=== PATIENT | female | born 1935 | race Caucasian/White ===

== ENCOUNTER 2021-07-07 00:54 | Inpatient (IN) | payer OTHER, BC ==
[~2021-07-07] VITALS: Ht 154.9 cm; Wt 50.0 kg
[2021-07-07] VITALS (7 sets, daily range): BP systolic 132–152; BP diastolic 63–97
[2021-07-07] MEDS ORDERED: SERT25TA PO (01:45)
[2021-07-07] MEDS ORDERED: LEVO50CA3 PO (01:45)
[2021-07-07] MEDS ORDERED: BISA10SU55 RC (01:45)
[2021-07-07] MEDS ORDERED: ASPI-630 PO (01:45)
[2021-07-07] MEDS ORDERED: ACET650S11 RC (01:45)
[2021-07-07] MEDS ORDERED: MEMA10TA PO (01:45)
[2021-07-07] MEDS ORDERED: ACET325T21 PO (01:45)
[2021-07-07] MEDS ORDERED: ATOR20TA58 PO (01:45)
--- NOTE | 2021-07-07 06:23 | NUR ---
Pt arrived to the floor at 0005 via EMS. Pt very confused and unable to answer questions. No s/s of pain or distress. Dr. Modi paged for orders at approximately 0145, 0200, and 0600, no call back yet.
[2021-07-07] MEDS ORDERED: ONDANSETRON PF 4 MG/2 ML VIAL. IVP PRN (10:45)
[2021-07-07] MEDS ORDERED: fentaNYL PF VIAL 100 MCG/2 ML VIAL IVP PRN (10:45)
[2021-07-07] MEDS ORDERED: POTASSIUM CL 20MEQ D5-0.2%NACL 1,000 ML IV SCH (11:00)
[2021-07-07] MEDS: PIPERACILLIN/TAZOBACTAM 2.25 GM in IV NORMAL SALINE 50ML 50 ML IV SCH ×3 (11:12→23:03)
[2021-07-07 11:22] LABS: CALCIUM 7.5 mg/dL (8.5-10.1); CREATININE 0.7 mg/dL (0.6-1.0); GFR 79.9; POTASSIUM 3.2 mmol/L (3.5-5.1)
[2021-07-07 11:24] LABS: BASO % 0 % (0-3); EOS % 0 % (0-3); HEMATOCRIT 37.6 % (36.0-47.0); HEMOGLOBIN 12.2 g/dL (12.0-15.5); LYMPH # 0.9 x10^3/uL (1.0-4.8); LYMPH % 7 % (24-48); MEAN CORPUSCULAR HEMOGLOBIN 31 pg (25-35); MEAN CORPUSCULAR HGB CONC 32 g/dL (31-37); MEAN CORPUSCULAR VOLUME 95 fL (79-100); MONO # 0.8 x10^3/uL (0.0-1.1); MONO % 6 % (0-9); NEUT # 12.3 x10^3/uL (1.8-7.7); NEUT % 88 % (31-73); PLATELET COUNT 313 x10^3/uL (140-400); RED BLOOD COUNT 3.97 x10^6/uL (3.50-5.40)
--- NOTE | 2021-07-07 11:25 | NUR ---
Lab called to notified about patient troponin critical level of 81 at 11:20am. Dr. Modi was paged and notified at 11:24am. No new ordered received at this time.
[2021-07-07 11:26] LABS: ALBUMIN 2.4 g/dL (3.4-5.0); ALBUMIN/GLOBULIN RATIO 0.6 (1.0-1.7); TOTAL BILIRUBIN 0.7 mg/dL (0.2-1.0); TOTAL PROTEIN 6.1 g/dL (6.4-8.2)
[2021-07-07] MEDS ORDERED: PIPERACILLIN/TAZOBACTAM 3.375 GM in IV NORMAL SALINE 50ML 50 ML IV SCH (12:00)
--- NOTE | 2021-07-07 12:05 | HP ---
DATE OF SERVICE: 07/07/2021 ADMIT DATE: 07/07/2021 HISTORY OF PRESENT ILLNESS: The patient is an 85-year-old female patient, a resident at [facility] who presented to the Emergency Room of [facility] via EMS for nausea and vomiting. Her symptoms started about 5 days ago and apparently the patient has been vomiting usually late in the day according to the nursing staff. There is no sick contact, trauma, or other exposures. According to the nursing staff, she also has been constipated, has not had any bowel movement, but there are no chills, rigors or fever. We did actually lab work and KUB that showed mild ileus and therefore, the patient was transferred to [facility] for further evaluation. When she arrived there, she was hemodynamically stable; however, she obviously is demented and does not give any useful information. She was extensively investigated. Had had lab work and imaging studies. Her lab work showed that she has leukocytosis with a white cell count 15,400, normal hemoglobin, hematocrit and platelets. Her chemistry showed that she has mild hypernatremia and her troponin I high sensitivity was slightly elevated at 93. She had also impaired kidney function with an estimated GFR of 47 mL per minute. Her urinalysis apart from mild proteinuria was unremarkable and unrevealing. Her SARS-CoV-2 antigen rapid testing was negative. She has had a CT scan of the abdomen and pelvis without contrast, which basically showed that the patient has dilated small bowel loops with distal decompression, which can be seen with bowel obstruction, suspected transition point at pelvis. She has patchy opacities at the lung bases, which could be from atelectasis, infiltrate or aspiration. Followup could be obtained to ensure that this appropriately resolved to exclude any persistent mass. She has severe atherosclerotic disease, calcification of uterus, could be from fibroids, distention of the rectosigmoid region with stool. She has lobulated appearance of the kidneys with fat-containing lesions of the right kidney again seen as well as suspected cystic lesion in the left kidney. She had also had an EKG, which showed that she was in sinus rhythm and given the suspected bowel obstruction, perhaps aspiration pneumonia and elevated troponin, the patient was transferred to [facility] to consult the surgical team, hydraulic spinner and to start her on IV antibiotic for her pneumonia. PAST MEDICAL HISTORY: Significant for hypertension, hyperlipidemia, vitamin D deficiency, hypothyroidism. She also has a history of TIA, cerebrovascular accident without any residual deficit, chronic venous hypertension and dementia. She is also known to have osteoporosis and osteoarthritis. PAST SURGICAL HISTORY: Significant for left hip hemiarthroplasty done on 09/25/2019. ALLERGIES: She has no known drug allergies. MEDICATIONS: She is currently on the following medications: She is on atorvastatin calcium 20 mg at bedtime, lisinopril 5 mg once a day, aspirin 81 mg once a day, Tylenol 650 mg every 4 hours, olanzapine 2.5 mg at bedtime, Namenda 10 mg twice a day, Colace 100 mg twice a day, lactobacillus rhamnosus 1 capsule twice a day, and levothyroxine sodium 50 mcg once a day. FAMILY HISTORY: Noncontributory. SOCIAL HISTORY: She is a resident at the longterm care side of [facility] since 12/25/2019. She does not smoke, drink alcohol or use any drugs. She is bed and wheelchair-bound. She apparently is a DNR. PHYSICAL EXAMINATION: GENERAL: On arrival to the Emergency Room, she was somewhat lethargic, but arousable. There was no pallor, jaundice, cyanosis or thyromegaly. No jugular venous distention. No limb edema. VITAL SIGNS: Her heart rate was 72, blood pressure was 146/66, her temperature was 98.2, respiratory rate was 18, and oxygen saturation was 93% on room air. HEAD, EYES, EARS, NOSE, AND THROAT: Normocephalic, atraumatic. NECK: Supple. HEART: Showed normal first and second heart sounds. No gallop, rub or murmur. CHEST: Shows central trachea, equal bilateral chest expansion, air entry, vesicular breath sounds. No crepitation or rhonchi. ABDOMEN: Distended with tenderness mostly in the right lower quadrant. There is no guarding or rigidity. No organomegaly. All hernial orifice intact. Bowel sounds normal. NEUROLOGIC: She is demented without any obvious lateralizing sign. LABORATORY DATA: On arrival to the Emergency Room of [facility] showed a white cell count 15,400; hemoglobin 14.6; hematocrit 45.7; MCV 98; and platelet count of 369,000; with a manual differential showed 90% polymorphs, 6% lymphocytes and 4% monocytes. Her serum sodium was 146, potassium 3.6, chloride 109, bicarbonate 28, anion gap of 9, BUN 33, creatinine 1.1. Estimated GFR was 47 mL per minute. Her glucose 101, lactic acid was 1.7, calcium was 9.3. Total bilirubin, AST, ALT, alkaline phosphatase are normal. Troponin I high sensitivity was slightly elevated at 93. Total protein 7.5, albumin was 3.4. In summary, this is an 85-year-old female patient, a resident at [facility] who has been complaining of recurrent bouts of nausea and vomiting. She had a KUB and some lab work done there, which showed that she has possible ileus. She was sent to [facility] where a CT scan of the abdomen and pelvis showed that she has dilated small bowel in the transition zone in the pelvic area suggestive of small-bowel obstruction. She also found to have probably aspiration pneumonia and her troponin was slightly elevated at 93. She has multiple other medical problems including: A. Hypertension. B. Hyperlipidemia. C. Vitamin D deficiency. D. Hypothyroidism. E. Chronic venous hypertension. F. Dementia. My plan is obviously to keep her n.p.o., start her on IV fluid in the form of D5 quarter normal saline with 20 mEq of potassium chloride. I did start her on IV Zosyn 3.375 grams IV every 6 hours for aspiration pneumonia. I will repeat all her lab work and consulted the surgical team, the Cardiology for her elevated troponin. I also ordered another 12-lead EKG and troponin. I also ordered fentanyl for pain and Zofran for nausea and vomiting. HOLLY/MATTHEW/CINTHYA DR: Oracio TID: [id number]
[2021-07-07] MEDS: POTASSIUM CL 20MEQ IN D5W 1,000 ML IV SCH ×2 (12:45→23:05)
[2021-07-07] MEDS ORDERED: BISACODYL 10 MG SUPP.RECT. PR ONE (16:30)
[2021-07-07] MEDS ORDERED: ACETAMINOPHEN 650 MG SUPP.RECT. PR PRN (16:30)
[2021-07-08 03:00] VITALS: BP 162/92
[2021-07-08] MEDS: PIPERACILLIN/TAZOBACTAM 2.25 GM in IV NORMAL SALINE 50ML 50 ML IV SCH ×3 (05:23→16:35)
[2021-07-08 05:50] LABS: BASO % 0 % (0-3); EOS # 0.1 x10^3/uL (0.0-0.7); EOS % 1 % (0-3); HEMATOCRIT 39.7 % (36.0-47.0); HEMOGLOBIN 12.6 g/dL (12.0-15.5); LYMPH # 1.6 x10^3/uL (1.0-4.8); LYMPH % 12 % (24-48); MEAN CORPUSCULAR HEMOGLOBIN 31 pg (25-35); MEAN CORPUSCULAR HGB CONC 32 g/dL (31-37); MEAN CORPUSCULAR VOLUME 97 fL (79-100); MONO # 0.8 x10^3/uL (0.0-1.1); MONO % 6 % (0-9); NEUT # 10.5 x10^3/uL (1.8-7.7); NEUT % 80 % (31-73); PLATELET COUNT 289 x10^3/uL (140-400); RED BLOOD COUNT 4.11 x10^6/uL (3.50-5.40); RED CELL DISTRIBUTION WIDTH 15.4 % (11.5-14.5); WHITE BLOOD COUNT 13.1 x10^3/uL (4.0-11.0)
[2021-07-08 05:52] LABS: ALBUMIN 2.3 g/dL (3.4-5.0); ALBUMIN/GLOBULIN RATIO 0.6 (1.0-1.7); CALCIUM 8.2 mg/dL (8.5-10.1); CREATININE 0.9 mg/dL (0.6-1.0); GFR 59.8; POTASSIUM 3.4 mmol/L (3.5-5.1); TOTAL BILIRUBIN 0.6 mg/dL (0.2-1.0); TOTAL PROTEIN 6.4 g/dL (6.4-8.2)
[2021-07-08 07:00] VITALS: BP 110/52
[2021-07-08] MEDS: POTASSIUM CL 20MEQ IN D5W 1,000 ML IV SCH ×2 (08:17→20:45)
--- NOTE | 2021-07-08 09:03 | PDOC2 ---
JACK VÁSQUEZ DETENTION DEPUTY 07/08/21 0903: CONSULT Date of Consult Date of Consult DATE: 07/08/21 TIME: 08:57 Reason for Consult Reason for Consult: sbo Referring Physician Referring Physician: Dr Modi Identification/Chief Complaint Chief Complaint n/v Source Source: Caregiver, Chart review History of Present Illness Reason for Visit: Patient unable to provide any history due to her significant dementia. Admitted from [facility] for possible SBO. She resides at a [facility] bug [facility] care facility. Was noted to have n/v, no stool in a week. There are reports she has not been eating well for longer. Ct at [facility] showed possible pneumonia, possible SBO with constipation. nursing reports 2 suppositories, no stools at this time Past Medical History Cardiovascular: AFIB, HTN, Hyperlipidemia CENTRAL NERVOUS SYSTEM: Dementia, TIA Psych: Bipolar, Depression Endocrine: Hypothyroidism Past Surgical History Past Surgical History: Other (unknown ) Family History Family History: Family History Unknown Social History Social History unknown Current Medications Current Medications Current Medications Potassium Chloride/Dextrose/ Sod Cl 1,000 ml @ 100 mls/hr Q10H IV Last administered on 07/07/21at 11:08; Start 07/07/21 at 11:00; Stop 07/07/21 at 12:40; Status DC Fentanyl Citrate (Fentanyl 2ml Vial) 25 mcg Q3H PRN IVP PAIN; Start 07/07/21 at 10:45 Ondansetron HCl (Zofran) 4 mg Q4H PRN IVP NAUSEA/VOMITING; Start 07/07/21 at 10:45 Piperacillin Sod/ Tazobactam Sod 3.375 gm/Sodium Chloride 50 ml @ 100 mls/hr Q6HRS IV ; Start 07/07/21 at 12:00; Status UNV Piperacillin Sod/ Tazobactam Sod 2.25 gm/Sodium Chloride 50 ml @ 100 mls/hr Q6HRS IV Last administered on 07/08/21at 05:23; Start 07/07/21 at 12:00 Potassium Chloride/Dextrose 1,000 ml @ 100 mls/hr Q10H IV Last administered on 07/08/21at 08:17; Start 07/07/21 at 12:45 Acetaminophen (Tylenol Supp) [address] Q[address] MILD PAIN / TEMP > 100.3'F Last administered on 07/07/21at 17:19; Start 07/07/21 at 16:30 Bisacodyl (Dulcolax Supp) [address] Last administered on 07/07/21at 17:20; Start 07/07/21 at 16:30; Stop 07/07/21 at 16:33; Status DC Active Scripts Active Reported Zoloft (Sertraline Hcl) 25 Mg Tablet 25 Mg PO DAILY Namenda (Memantine Hcl) 10 Mg Tablet 10 Mg PO BID Levothyroxine (Levothyroxine Sodium) 50 Mcg Capsule 50 Mcg PO DAILY Dulcolax (Bisacodyl) 10 Mg Supp.rect 10 Mg RC PRN DAILY PRN Atorvastatin Calcium 20 Mg Tablet 20 Mg PO HS Aspirin 81 Mg Tab.chew 1 Tab PO DAILY Acetaminophen 325 Mg Tablet 650 Mg PO PRN Q4HRS PRN Acetaminophen Supp (Acetaminophen) 650 Mg Supp.rect 650 Mg RC PRN Q6HRS PRN Allergies Allergies: Coded Allergies: No Known Drug Allergies (Unverified , 12/29/14) ROS Review of System unable to obtain due to dementia Physical Exam General: Other (dementia ) HEENT: Other (very poor dental hygiene) Lungs: Other (diminished ) Heart: Regular rate, Normal S1, Normal S2 Abdomen: Other (distended, soft, appears nontender ) Extremities: No clubbing, No cyanosis MUSCULOSKELETAL: No deformity, No swelling Vitals VITALS Vital Signs Date Time Temp Pulse Resp B/P (MAP) Pulse Ox O2 Delivery O2 Flow Rate FiO2 07/08/21 07:00 98.0 61 18 110/52 (71) 97 Room Air 98.0 Labs Labs Laboratory Tests Test 07/07/21 10:45 07/07/21 16:00 07/08/21 05:00 White Blood Count 14.0 x10^3/uL (4.0-11.0) 13.1 x10^3/uL (4.0-11.0) Red Blood Count 3.97 x10^6/uL (3.50-5.40) 4.11 x10^6/uL (3.50-5.40) Hemoglobin 12.2 g/dL (12.0-15.5) 12.6 g/dL (12.0-15.5) Hematocrit 37.6 % (36.0-47.0) 39.7 % (36.0-47.0) Mean Corpuscular Volume 95 fL (79-100) 97 fL (79-100) Mean Corpuscular Hemoglobin 31 pg (25-35) 31 pg (25-35) Mean Corpuscular Hemoglobin Concent 32 g/dL (31-37) 32 g/dL (31-37) Red Cell Distribution Width 15.0 % (11.5-14.5) 15.4 % (11.5-14.5) Platelet Count 313 x10^3/uL (140-400) 289 x10^3/uL (140-400) Neutrophils (%) (Auto) 88 % (31-73) 80 % (31-73) Lymphocytes (%) (Auto) 7 % (24-48) 12 % (24-48) Monocytes (%) (Auto) 6 % (0-9) 6 % (0-9) Eosinophils (%) (Auto) 0 % (0-3) 1 % (0-3) Basophils (%) (Auto) 0 % (0-3) 0 % (0-3) Neutrophils # (Auto) 12.3 x10^3/uL (1.8-7.7) 10.5 x10^3/uL (1.8-7.7) Lymphocytes # (Auto) 0.9 x10^3/uL (1.0-4.8) 1.6 x10^3/uL (1.0-4.8) Monocytes # (Auto) 0.8 x10^3/uL (0.0-1.1) 0.8 x10^3/uL (0.0-1.1) Eosinophils # (Auto) 0.0 x10^3/uL (0.0-0.7) 0.1 x10^3/uL (0.0-0.7) Basophils # (Auto) 0.0 x10^3/uL (0.0-0.2) 0.0 x10^3/uL (0.0-0.2) Sodium Level 152 mmol/L (136-145) 148 mmol/L (136-145) Potassium Level 3.2 mmol/L (3.5-5.1) 3.4 mmol/L (3.5-5.1) Chloride Level 115 mmol/L (98-107) 112 mmol/L (98-107) Carbon Dioxide Level 23 mmol/L (21-32) 28 mmol/L (21-32) Anion Gap 14 (6-14) 8 (6-14) Blood Urea Nitrogen 26 mg/dL (7-20) 19 mg/dL (7-20) Creatinine 0.7 mg/dL (0.6-1.0) 0.9 mg/dL (0.6-1.0) Estimated GFR (Cockcroft-Gault) 79.9 59.8 BUN/Creatinine Ratio 37 (6-20) 21 (6-20) Glucose Level 77 mg/dL (70-99) 153 mg/dL (70-99) Lactic Acid Level 0.8 mmol/L (0.4-2.0) Calcium Level 7.5 mg/dL (8.5-10.1) 8.2 mg/dL (8.5-10.1) Total Bilirubin 0.7 mg/dL (0.2-1.0) 0.6 mg/dL (0.2-1.0) Aspartate Amino Transf (AST/SGOT) 15 U/L (15-37) 14 U/L (15-37) Alanine Aminotransferase (ALT/SGPT) 12 U/L (14-59) 12 U/L (14-59) Alkaline Phosphatase 59 U/L (46-116) 63 U/L (46-116) Lactate Dehydrogenase 196 U/L (81-234) Troponin I High Sensitivity 81 ng/L (4-50) 71 ng/L (4-50) Total Protein 6.1 g/dL (6.4-8.2) 6.4 g/dL (6.4-8.2) Albumin 2.4 g/dL (3.4-5.0) 2.3 g/dL (3.4-5.0) Albumin/Globulin Ratio 0.6 (1.0-1.7) 0.6 (1.0-1.7) Laboratory Tests Test 07/07/21 10:45 07/07/21 16:00 07/08/21 05:00 White Blood Count 14.0 x10^3/uL (4.0-11.0) 13.1 x10^3/uL (4.0-11.0) Red Blood Count 3.97 x10^6/uL (3.50-5.40) 4.11 x10^6/uL (3.50-5.40) Hemoglobin 12.2 g/dL (12.0-15.5) 12.6 g/dL (12.0-15.5) Hematocrit 37.6 % (36.0-47.0) 39.7 % (36.0-47.0) Mean Corpuscular Volume 95 fL (79-100) 97 fL (79-100) Mean Corpuscular Hemoglobin 31 pg (25-35) 31 pg (25-35) Mean Corpuscular Hemoglobin Concent 32 g/dL (31-37) 32 g/dL (31-37) Red Cell Distribution Width 15.0 % (11.5-14.5) 15.4 % (11.5-14.5) Platelet Count 313 x10^3/uL (140-400) 289 x10^3/uL (140-400) Neutrophils (%) (Auto) 88 % (31-73) 80 % (31-73) Lymphocytes (%) (Auto) 7 % (24-48) 12 % (24-48) Monocytes (%) (Auto) 6 % (0-9) 6 % (0-9) Eosinophils (%) (Auto) 0 % (0-3) 1 % (0-3) Basophils (%) (Auto) 0 % (0-3) 0 % (0-3) Neutrophils # (Auto) 12.3 x10^3/uL (1.8-7.7) 10.5 x10^3/uL (1.8-7.7) Lymphocytes # (Auto) 0.9 x10^3/uL (1.0-4.8) 1.6 x10^3/uL (1.0-4.8) Monocytes # (Auto) 0.8 x10^3/uL (0.0-1.1) 0.8 x10^3/uL (0.0-1.1) Eosinophils # (Auto) 0.0 x10^3/uL (0.0-0.7) 0.1 x10^3/uL (0.0-0.7) Basophils # (Auto) 0.0 x10^3/uL (0.0-0.2) 0.0 x10^3/uL (0.0-0.2) Sodium Level 152 mmol/L (136-145) 148 mmol/L (136-145) Potassium Level 3.2 mmol/L (3.5-5.1) 3.4 mmol/L (3.5-5.1) Chloride Level 115 mmol/L (98-107) 112 mmol/L (98-107) Carbon Dioxide Level 23 mmol/L (21-32) 28 mmol/L (21-32) Anion Gap 14 (6-14) 8 (6-14) Blood Urea Nitrogen 26 mg/dL (7-20) 19 mg/dL (7-20) Creatinine 0.7 mg/dL (0.6-1.0) 0.9 mg/dL (0.6-1.0) Estimated GFR (Cockcroft-Gault) 79.9 59.8 BUN/Creatinine Ratio 37 (6-20) 21 (6-20) Glucose Level 77 mg/dL (70-99) 153 mg/dL (70-99) Lactic Acid Level 0.8 mmol/L (0.4-2.0) Calcium Level 7.5 mg/dL (8.5-10.1) 8.2 mg/dL (8.5-10.1) Total Bilirubin 0.7 mg/dL (0.2-1.0) 0.6 mg/dL (0.2-1.0) Aspartate Amino Transf (AST/SGOT) 15 U/L (15-37) 14 U/L (15-37) Alanine Aminotransferase (ALT/SGPT) 12 U/L (14-59) 12 U/L (14-59) Alkaline Phosphatase 59 U/L (46-116) 63 U/L (46-116) Lactate Dehydrogenase 196 U/L (81-234) Troponin I High Sensitivity 81 ng/L (4-50) 71 ng/L (4-50) Total Protein 6.1 g/dL (6.4-8.2) 6.4 g/dL (6.4-8.2) Albumin 2.4 g/dL (3.4-5.0) 2.3 g/dL (3.4-5.0) Albumin/Globulin Ratio 0.6 (1.0-1.7) 0.6 (1.0-1.7) Assessment/Plan Assessment/Plan SBO vs ileus, constipation--will repeat abd films may need gi eval for constipation management medical management LAURENCE CALDERON MD 07/08/21 1201: CONSULT Assessment/Plan Assessment/Plan Resting comfortably. Abdomen is soft nontender. Treat conservatively at this time follow. Agree with Sandra assessment plan JACK VÁSQUEZ APRN Jul 08, 2021 09:03 LAURENCE CALDERON MD Jul 08, 2021 12:01
[2021-07-08 10:59] VITALS: BP 133/75
--- NOTE | 2021-07-08 12:20 | PDOC2 ---
CONSULT Date of Consult Date of Consult DATE: 07/08/21 TIME: 12:20 Reason for Consult Reason for Consult: Elevated troponin level Referring Physician Referring Physician: Dr. Modi Identification/Chief Complaint Chief Complaint Nausea and vomiting Source Source: Chart review, Patient History of Present Illness Reason for Visit: 85-year-old female with history of dementia and without any previous cardiac history, resident of [facility] initially presented to [facility] for 4 to 5-day history of nausea and vomiting. According to the nursing staff she apparently has been constipated as well. She was found to have possible small bowel obstruction and aspiration pneumonia and transferred to [facility] for further management. She is a poor historian secondary to her dementia but per family, she did not have any chest pain, palpitations or syncope. Her troponin level was slightly elevated prompting cardiology con sultation. Past Medical History Cardiovascular: HTN, Hyperlipidemia CENTRAL NERVOUS SYSTEM: Dementia, TIA Psych: Bipolar, Depression Endocrine: Hypothyroidism Past Surgical History Past Surgical History: Other (unknown ) Family History Family History: Family History Unknown Current Medications Current Medications Current Medications Potassium Chloride/Dextrose/ Sod Cl 1,000 ml @ 100 mls/hr Q10H IV Last administered on 07/07/21at 11:08; Start 07/07/21 at 11:00; Stop 07/07/21 at 12:40; Status DC Fentanyl Citrate (Fentanyl 2ml Vial) 25 mcg Q3H PRN IVP PAIN; Start 07/07/21 at 10:45 Ondansetron HCl (Zofran) 4 mg Q4H PRN IVP NAUSEA/VOMITING; Start 07/07/21 at 10:45 Piperacillin Sod/ Tazobactam Sod 3.375 gm/Sodium Chloride 50 ml @ 100 mls/hr Q6HRS IV ; Start 07/07/21 at 12:00; Status UNV Piperacillin Sod/ Tazobactam Sod 2.25 gm/Sodium Chloride 50 ml @ 100 mls/hr Q6HRS IV Last administered on 07/08/21at 12:15; Start 07/07/21 at 12:00 Potassium Chloride/Dextrose 1,000 ml @ 100 mls/hr Q10H IV Last administered on 07/08/21at 08:17; Start 07/07/21 at 12:45 Acetaminophen (Tylenol Supp) 650 mg PRN Q6HRS PRN [facility] MILD PAIN / TEMP > 100.3'F Last administered on 07/07/21at 17:19; Start 07/07/21 at 16:30 Bisacodyl (Dulcolax Supp) 10 mg 1X ONCE [facility] Last administered on 07/07/21at 17:20; Start 07/07/21 at 16:30; Stop 07/07/21 at 16:33; Status DC Active Scripts Active Reported Zoloft (Sertraline Hcl) 25 Mg Tablet 25 Mg PO DAILY Namenda (Memantine Hcl) 10 Mg Tablet 10 Mg PO BID Levothyroxine (Levothyroxine Sodium) 50 Mcg Capsule 50 Mcg PO DAILY Dulcolax (Bisacodyl) 10 Mg Supp.rect 10 Mg RC PRN DAILY PRN Atorvastatin Calcium 20 Mg Tablet 20 Mg PO HS Aspirin 81 Mg Tab.chew 1 Tab PO DAILY Acetaminophen 325 Mg Tablet 650 Mg PO PRN Q4HRS PRN Acetaminophen Supp (Acetaminophen) 650 Mg Supp.rect 650 Mg RC PRN Q6HRS PRN Allergies Allergies: Coded Allergies: No Known Drug Allergies (Unverified , 12/29/14) ROS Review of System Full review of systems cannot be obtained secondary to her dementia Physical Exam General: Other (Somnolent, lethargic but arousable) HEENT: Atraumatic Lungs: Clear to auscultation Heart: Regular rate Abdomen: Soft Extremities: No edema Vitals VITALS Vital Signs Date Time Temp Pulse Resp B/P (MAP) Pulse Ox O2 Delivery O2 Flow Rate FiO2 07/08/21 10:59 97.5 65 18 133/75 (94) 93 Room Air 97.5 Labs Labs Laboratory Tests Test 07/07/21 10:45 07/07/21 16:00 07/08/21 05:00 White Blood Count 14.0 x10^3/uL (4.0-11.0) 13.1 x10^3/uL (4.0-11.0) Red Blood Count 3.97 x10^6/uL (3.50-5.40) 4.11 x10^6/uL (3.50-5.40) Hemoglobin 12.2 g/dL (12.0-15.5) 12.6 g/dL (12.0-15.5) Hematocrit 37.6 % (36.0-47.0) 39.7 % (36.0-47.0) Mean Corpuscular Volume 95 fL (79-100) 97 fL (79-100) Mean Corpuscular Hemoglobin 31 pg (25-35) 31 pg (25-35) Mean Corpuscular Hemoglobin Concent 32 g/dL (31-37) 32 g/dL (31-37) Red Cell Distribution Width 15.0 % (11.5-14.5) 15.4 % (11.5-14.5) Platelet Count 313 x10^3/uL (140-400) 289 x10^3/uL (140-400) Neutrophils (%) (Auto) 88 % (31-73) 80 % (31-73) Lymphocytes (%) (Auto) 7 % (24-48) 12 % (24-48) Monocytes (%) (Auto) 6 % (0-9) 6 % (0-9) Eosinophils (%) (Auto) 0 % (0-3) 1 % (0-3) Basophils (%) (Auto) 0 % (0-3) 0 % (0-3) Neutrophils # (Auto) 12.3 x10^3/uL (1.8-7.7) 10.5 x10^3/uL (1.8-7.7) Lymphocytes # (Auto) 0.9 x10^3/uL (1.0-4.8) 1.6 x10^3/uL (1.0-4.8) Monocytes # (Auto) 0.8 x10^3/uL (0.0-1.1) 0.8 x10^3/uL (0.0-1.1) Eosinophils # (Auto) 0.0 x10^3/uL (0.0-0.7) 0.1 x10^3/uL (0.0-0.7) Basophils # (Auto) 0.0 x10^3/uL (0.0-0.2) 0.0 x10^3/uL (0.0-0.2) Sodium Level 152 mmol/L (136-145) 148 mmol/L (136-145) Potassium Level 3.2 mmol/L (3.5-5.1) 3.4 mmol/L (3.5-5.1) Chloride Level 115 mmol/L (98-107) 112 mmol/L (98-107) Carbon Dioxide Level 23 mmol/L (21-32) 28 mmol/L (21-32) Anion Gap 14 (6-14) 8 (6-14) Blood Urea Nitrogen 26 mg/dL (7-20) 19 mg/dL (7-20) Creatinine 0.7 mg/dL (0.6-1.0) 0.9 mg/dL (0.6-1.0) Estimated GFR (Cockcroft-Gault) 79.9 59.8 BUN/Creatinine Ratio 37 (6-20) 21 (6-20) Glucose Level 77 mg/dL (70-99) 153 mg/dL (70-99) Lactic Acid Level 0.8 mmol/L (0.4-2.0) Calcium Level 7.5 mg/dL (8.5-10.1) 8.2 mg/dL (8.5-10.1) Total Bilirubin 0.7 mg/dL (0.2-1.0) 0.6 mg/dL (0.2-1.0) Aspartate Amino Transf (AST/SGOT) 15 U/L (15-37) 14 U/L (15-37) Alanine Aminotransferase (ALT/SGPT) 12 U/L (14-59) 12 U/L (14-59) Alkaline Phosphatase 59 U/L (46-116) 63 U/L (46-116) Lactate Dehydrogenase 196 U/L (81-234) Troponin I High Sensitivity 81 ng/L (4-50) 71 ng/L (4-50) Total Protein 6.1 g/dL (6.4-8.2) 6.4 g/dL (6.4-8.2) Albumin 2.4 g/dL (3.4-5.0) 2.3 g/dL (3.4-5.0) Albumin/Globulin Ratio 0.6 (1.0-1.7) 0.6 (1.0-1.7) Laboratory Tests Test 07/07/21 16:00 07/08/21 05:00 Troponin I High Sensitivity 71 ng/L (4-50) White Blood Count 13.1 x10^3/uL (4.0-11.0) Red Blood Count 4.11 x10^6/uL (3.50-5.40) Hemoglobin 12.6 g/dL (12.0-15.5) Hematocrit 39.7 % (36.0-47.0) Mean Corpuscular Volume 97 fL (79-100) Mean Corpuscular Hemoglobin 31 pg (25-35) Mean Corpuscular Hemoglobin Concent 32 g/dL (31-37) Red Cell Distribution Width 15.4 % (11.5-14.5) Platelet Count 289 x10^3/uL (140-400) Neutrophils (%) (Auto) 80 % (31-73) Lymphocytes (%) (Auto) 12 % (24-48) Monocytes (%) (Auto) 6 % (0-9) Eosinophils (%) (Auto) 1 % (0-3) Basophils (%) (Auto) 0 % (0-3) Neutrophils # (Auto) 10.5 x10^3/uL (1.8-7.7) Lymphocytes # (Auto) 1.6 x10^3/uL (1.0-4.8) Monocytes # (Auto) 0.8 x10^3/uL (0.0-1.1) Eosinophils # (Auto) 0.1 x10^3/uL (0.0-0.7) Basophils # (Auto) 0.0 x10^3/uL (0.0-0.2) Sodium Level 148 mmol/L (136-145) Potassium Level 3.4 mmol/L (3.5-5.1) Chloride Level 112 mmol/L (98-107) Carbon Dioxide Level 28 mmol/L (21-32) Anion Gap 8 (6-14) Blood Urea Nitrogen 19 mg/dL (7-20) Creatinine 0.9 mg/dL (0.6-1.0) Estimated GFR (Cockcroft-Gault) 59.8 BUN/Creatinine Ratio 21 (6-20) Glucose Level 153 mg/dL (70-99) Calcium Level 8.2 mg/dL (8.5-10.1) Total Bilirubin 0.6 mg/dL (0.2-1.0) Aspartate Amino Transf (AST/SGOT) 14 U/L (15-37) Alanine Aminotransferase (ALT/SGPT) 12 U/L (14-59) Alkaline Phosphatase 63 U/L (46-116) Total Protein 6.4 g/dL (6.4-8.2) Albumin 2.3 g/dL (3.4-5.0) Albumin/Globulin Ratio 0.6 (1.0-1.7) Assessment/Plan Assessment/Plan 1. Non-STEMI: Most likely type II/demand ischemia. Doubt ACS. Check 2D echo to assess LV systolic function. 2. Possible small bowel obstruction: General surgery team following 3. Hypertension: Well-controlled 4. Aspiration pneumonia: Continue intravenous antibiotics 5. Hyperlipidemia: Continue statin therapy 6. Hypothyroidism: Continue levothyroxine 7. Dementia Thank you for your consultation. FELIPE RUBIO MD Jul 08, 2021 12:20
--- NOTE | 2021-07-08 12:26 | RAD ---
Acute abdominal series with PA chest: Reason for examination: Small bowel obstruction. The heart size is normal. Mediastinum is unremarkable. Lung palm show some interstitial and alveolar opacities in the left lung base. No pleural effusions are seen. Right lung field is clear. No acute bony abnormalities are seen. In the abdomen, there is no gross organomegaly. Psoas muscles are symmetric. Bowel gas pattern shows dilated air-filled small intestine with transition in the right pelvis. Appea dusty would be consistent with small bowel obstruction. Fecal material is present in a nondistended c olon. Focal 2.5 cm calcific density is seen in the right pelvis which probably reflects a degenerating uter ine fibroid. Postop changes are seen at the left hip with total hip prosthesis in place. No acute bony abnormaliti es are seen. IMPRESSION: Interstitial and alveolar opacities in the left lung base. Cannot exclude pneumonia. Dilated air-filled small intestine with transition in the right pelvis. The appearance would be consi stent with small bowel obstruction. Calcific density in the right pelvis probably representing a degenerating uterine fibroid measuring a pproximately 2.5 cm in greatest dimension Electronically signed by: Yoon Cristobal MD (07/08/2021 12:24 PM) [id number]
--- NOTE | 2021-07-08 14:59 | PN ---
DATE: 07/08/2021 SUBJECTIVE: The patient is resting, slightly propped up in bed, in no apparent respiratory distress. She has no further episodes of nausea and vomiting. She did have 2 bowel movements this morning; however, she continued to be markedly tender in her left lower quadrant. PHYSICAL EXAMINATION: GENERAL: When I examined her, she was pale, but not jaundiced or cyanosed. No lymphadenopathy, no thyromegaly, no jugular venous distention. No limb edema. VITAL SIGNS: Her heart rate was 61, blood pressure was 110/52, temperature was 98, respiratory rate was 18 and oxygen saturation was 97% on room air. HEAD, EYES, EARS, NOSE AND THROAT: Normocephalic, atraumatic. NECK: Supple. HEART: Normal first and second heart sounds. No gallop or murmur. CHEST: Shows central trachea, equal bilateral chest expansion, air entry, vesicular breath sounds with crepitation mostly in the right side posteriorly. I could not appreciate any rhonchi. ABDOMEN: Slightly distended with tenderness mostly in the left lower quadrant. There is no guarding or rigidity. No organomegaly. All hernial orifice intact. Bowel sounds are sluggish. NEUROLOGIC: She is demented without any lateralizing sign. Her intake and output were incompletely recorded. LABORATORY DATA: Her lab work this morning showed a white cell count of 13,000; hemoglobin 13; hematocrit 39; MCV 97 and platelet count 289,000. Her chemistry showed a serum sodium of 148, potassium 3.4, chloride 112, bicarbonate 28, anion gap of 8, BUN 19, creatinine 0.9. Estimated GFR 59 mL per minute. Her glucose 153, calcium was 8.2. Total bilirubin, AST, ALT, alkaline phosphatase were normal. Total protein 6.4 and albumin was 2.3. ASSESSMENT: 1. Recurrent bouts of nausea, vomiting and constipation, for which she was evaluated at the Emergency Room of [facility] and was found to have dilated small bowel with a transition zone in the pelvic area suggestive of small bowel obstruction. 2. Aspiration pneumonia. 3. Slightly elevated troponin that is trending down. 4. The patient has multiple preexisting conditions that include: A. Hypertension. B. Hyperlipidemia. C. Vitamin D deficiency. D. Hypothyroidism. E. Chronic venous hypertension. F. Dementia. 5. The patient has hypernatremia and hypokalemia that is slowly improving. PLAN: To continue with D5W with 20 mEq of potassium chloride. Continue with IV antibiotic in the form of piperacillin/tazobactam. Continue with pain management and antiemetic. The patient has a KUB done this morning; however, it was not read by the radiologist; however, it does continue to demonstrate dilated small bowel. EMILY DR: Oracio TID: [id number]
[2021-07-08 15:00] VITALS: BP 122/65
[2021-07-08 19:00] VITALS: BP 151/78
[2021-07-08 23:00] VITALS: BP 148/72
[2021-07-09] MEDS: PIPERACILLIN/TAZOBACTAM 2.25 GM in IV NORMAL SALINE 50ML 50 ML IV SCH ×5 (00:55→23:42)
[2021-07-09 03:00] VITALS: BP 162/79
[2021-07-09 07:00] VITALS: BP 124/56
[2021-07-09 07:49] LABS: HEMATOCRIT 37.9 % (36.0-47.0); HEMOGLOBIN 12.1 g/dL (12.0-15.5); RED BLOOD COUNT 3.96 x10^6/uL (3.50-5.40); WHITE BLOOD COUNT 11.6 x10^3/uL (4.0-11.0)
[2021-07-09 07:55] LABS: ALBUMIN 1.9 g/dL (3.4-5.0); ALBUMIN/GLOBULIN RATIO 0.5 (1.0-1.7); CALCIUM 7.6 mg/dL (8.5-10.1); CREATININE 0.6 mg/dL (0.6-1.0); GFR 95.5; POTASSIUM 3.8 mmol/L (3.5-5.1); TOTAL BILIRUBIN 0.7 mg/dL (0.2-1.0); TOTAL PROTEIN 5.4 g/dL (6.4-8.2)
[2021-07-09] MEDS: POTASSIUM CL 20MEQ IN D5W 1,000 ML IV SCH ×2 (08:40→17:16)
--- NOTE | 2021-07-09 09:23 | PN ---
DATE: 07/09/2021 SUBJECTIVE: The patient is definitely more awake, alert, although she is extremely confused. Nursing staff stated that she has a small bowel movement today compared to yesterday. Her acute abdomen series showed that the patient continues to have dilated air filled small intestine with transition in the right pelvis. The appearance would be consistent with small-bowel obstruction, calcific density in the right pelvis probably representing degenerating uterine fibroid measuring approximately 2.5 cm in the greatest dimension. PHYSICAL EXAMINATION: GENERAL: When I examined her this morning, she was definitely more awake, alert, although confused. She was pale, somewhat cachectic, but not jaundiced or cyanosed. No lymphadenopathy, no thyromegaly, no jugular venous distention. No lower limb edema. VITAL SIGNS: Her heart rate was 59, blood pressure is 124/56, temperature was 98.1, respiratory rate 20, and oxygen saturation was 94% on room air. HEAD, EYES, EARS, NOSE, AND THROAT: Normocephalic, atraumatic. NECK: Supple. HEART: Normal first and second heart sounds. No gallop, rub or murmur. CHEST: Shows central trachea, equal bilateral chest expansion, air entry, vesicular breath sounds with crepitation mostly in the right side posteriorly. I could not appreciate any rhonchi. ABDOMEN: Distended with tenderness mostly in the left lower quadrant. There is no guarding or rigidity. No organomegaly. All hernial orifice intact. Bowel sounds are sluggish. NEUROLOGIC: She is demented, but without any obvious lateralizing sign. She has an indwelling Maguire catheter. Her intake and output are incompletely recorded. LABORATORY DATA: This morning showed a white cell count is down to 11,600, hemoglobin 12, hematocrit 38, MCV 96 and platelet count 249,000. Her chemistry showed a serum sodium 139, potassium 3.8, chloride 106, bicarbonate 22, anion gap of 11, BUN 12, creatinine 0.6. Estimated GFR was 95 mL per minute. Her glucose was 125, calcium was 7.6. Total bilirubin, AST, ALT, alkaline phosphatase were normal. Total protein was 5.7, albumin was 1.9. ASSESSMENT: 1. Recurrent bouts of nausea, vomiting, constipation, for which she was evaluated in the Emergency Room of [facility] and a CT scan showed dilated small bowel with transition zone in the pelvic area suggestive of small-bowel obstruction, acute abdomen series done in this hospital confirmed that impression. 2. Aspiration pneumonia, for which she was treated with IV Zosyn. 3. Slightly elevated troponin that is trending down. She was seen by the continuous improvement specialist who felt that the non-ST segment elevation myocardial infarction most likely type 2 demand ischemia. A 2-dimensional echo was ordered to assess her left ventricular systolic function. 4. The patient has multiple preexisting conditions include: A. Hypertension, seems to be well controlled. B. Hyperlipidemia. C. Vitamin D deficiency. D. Hypothyroidism. E. Chronic venous hypertension. F. Hypernatremia and hypokalemia, resolved. 5. Dementia. PLAN: To continue with IV fluid. Continue with IV antibiotic. Continue with pain management and SCDs for DVT prophylaxis. Await the final decision by the surgical team as she is medically stable. GISELLE DR: Oracio TID: [id number]
--- NOTE | 2021-07-09 10:15 | PDOC ---
KARI GARCIA SWITCH FOREMAN 07/09/21 1015: CARDIO Progress Notes Date and Time Date of Service 07/09/21 Time of Evaluation 1020 Subjective Subjective: No Chest Pain, No shortness of breath, No Palpitations Vitals Vitals Vital Signs Date Time Temp Pulse Resp B/P (MAP) Pulse Ox O2 Delivery O2 Flow Rate FiO2 07/09/21 07:00 98.1 59 20 124/56 (78) 94 Room Air 98.1 Weight Weight [ ] Input and Output Intake and Output Intake and Output 07/09/21 06:59 Output Total 100 ml Balance -100 ml Output Urine Total 100 ml # Voids 2 Laboratory Labs Laboratory Tests Test 07/09/21 06:50 White Blood Count 11.6 x10^3/uL (4.0-11.0) Red Blood Count 3.96 x10^6/uL (3.50-5.40) Hemoglobin 12.1 g/dL (12.0-15.5) Hematocrit 37.9 % (36.0-47.0) Mean Corpuscular Volume 96 fL (79-100) Mean Corpuscular Hemoglobin 31 pg (25-35) Mean Corpuscular Hemoglobin Concent 32 g/dL (31-37) Red Cell Distribution Width 15.0 % (11.5-14.5) Platelet Count 249 x10^3/uL (140-400) Sodium Level 139 mmol/L (136-145) Potassium Level 3.8 mmol/L (3.5-5.1) Chloride Level 106 mmol/L (98-107) Carbon Dioxide Level 22 mmol/L (21-32) Anion Gap 11 (6-14) Blood Urea Nitrogen 12 mg/dL (7-20) Creatinine 0.6 mg/dL (0.6-1.0) Estimated GFR (Cockcroft-Gault) 95.5 BUN/Creatinine Ratio 20 (6-20) Glucose Level 125 mg/dL (70-99) Calcium Level 7.6 mg/dL (8.5-10.1) Total Bilirubin 0.7 mg/dL (0.2-1.0) Aspartate Amino Transf (AST/SGOT) 13 U/L (15-37) Alanine Aminotransferase (ALT/SGPT) 15 U/L (14-59) Alkaline Phosphatase 57 U/L (46-116) Total Protein 5.4 g/dL (6.4-8.2) Albumin 1.9 g/dL (3.4-5.0) Albumin/Globulin Ratio 0.5 (1.0-1.7) Physical Exam HEENT: Neck Supple W Full Motion Chest: Symmetric LUNGS: Other (diminished bases) Heart: RRR (heart tones regular. not on tele) Abdomen: Soft N/T Extremities: No Edema Neurology: alert, confused Assessment Assessment 1. Non-STEMI: Slight troponin elevation. Most likely type II/demand ischemia. Doubt ACS. Echo pending 2. Nausea/vomiting/constipation with possible small bowel obstruction: continue as per GS team 3. Hypertension: controlled 4. Aspiration pneumonia: Continue intravenous antibiotics 5. Hyperlipidemia: Continue statin therapy 6. Hypothyroidism: Continue levothyroxine 7. Encephalopathy with underlying dementia Justicifation of Admission Dx: Justifications for Admission: Justification of Admission Dx: Yes Comments: Elevated troponin PNA Encephalopathy with underlying dementia FELIPE RUBIO MD 07/10/21 0622: CARDIO Progress Notes Assessment Assessment Patient seen and examined 07/09/2021. Agree with COMPUTER CONSOLE OPERATOR's assessment and plan. Non-STEMI most probably type II/demand ischemia 2D echo showed LVEF 55 to 60% with diastolic dysfunction Continue intravenous antibiotics for aspiration pneumonia GS team following for possible small bowel obstruction KARI GARCIA APRN Jul 09, 2021 10:15 FELIPE RUBIO MD Jul 10, 2021 06:22
--- NOTE | 2021-07-09 11:07 | PDOC ---
SURGICAL PROGRESS NOTE DATE: 07/09/21 TIME: 11:05 Subjective dementia appears comfortable Vital Signs Vital Signs Date Time Temp Pulse Resp B/P (MAP) Pulse Ox O2 Delivery O2 Flow Rate FiO2 07/09/21 07:00 98.1 59 20 124/56 (78) 94 Room Air 98.1 I&O Intake and Output 07/09/21 07:00 Output Total 100 ml Balance -100 ml Output Urine Total 100 ml # Voids 2 General: No acute distress Abdomen: Soft, Other (mildly distended ) Labs Laboratory Tests Test 07/07/21 16:00 07/08/21 05:00 07/09/21 06:50 Troponin I High Sensitivity 71 ng/L (4-50) White Blood Count 13.1 x10^3/uL (4.0-11.0) 11.6 x10^3/uL (4.0-11.0) Red Blood Count 4.11 x10^6/uL (3.50-5.40) 3.96 x10^6/uL (3.50-5.40) Hemoglobin 12.6 g/dL (12.0-15.5) 12.1 g/dL (12.0-15.5) Hematocrit 39.7 % (36.0-47.0) 37.9 % (36.0-47.0) Mean Corpuscular Volume 97 fL (79-100) 96 fL (79-100) Mean Corpuscular Hemoglobin 31 pg (25-35) 31 pg (25-35) Mean Corpuscular Hemoglobin Concent 32 g/dL (31-37) 32 g/dL (31-37) Red Cell Distribution Width 15.4 % (11.5-14.5) 15.0 % (11.5-14.5) Platelet Count 289 x10^3/uL (140-400) 249 x10^3/uL (140-400) Neutrophils (%) (Auto) 80 % (31-73) Lymphocytes (%) (Auto) 12 % (24-48) Monocytes (%) (Auto) 6 % (0-9) Eosinophils (%) (Auto) 1 % (0-3) Basophils (%) (Auto) 0 % (0-3) Neutrophils # (Auto) 10.5 x10^3/uL (1.8-7.7) Lymphocytes # (Auto) 1.6 x10^3/uL (1.0-4.8) Monocytes # (Auto) 0.8 x10^3/uL (0.0-1.1) Eosinophils # (Auto) 0.1 x10^3/uL (0.0-0.7) Basophils # (Auto) 0.0 x10^3/uL (0.0-0.2) Sodium Level 148 mmol/L (136-145) 139 mmol/L (136-145) Potassium Level 3.4 mmol/L (3.5-5.1) 3.8 mmol/L (3.5-5.1) Chloride Level 112 mmol/L (98-107) 106 mmol/L (98-107) Carbon Dioxide Level 28 mmol/L (21-32) 22 mmol/L (21-32) Anion Gap 8 (6-14) 11 (6-14) Blood Urea Nitrogen 19 mg/dL (7-20) 12 mg/dL (7-20) Creatinine 0.9 mg/dL (0.6-1.0) 0.6 mg/dL (0.6-1.0) Estimated GFR (Cockcroft-Gault) 59.8 95.5 BUN/Creatinine Ratio 21 (6-20) 20 (6-20) Glucose Level 153 mg/dL (70-99) 125 mg/dL (70-99) Calcium Level 8.2 mg/dL (8.5-10.1) 7.6 mg/dL (8.5-10.1) Total Bilirubin 0.6 mg/dL (0.2-1.0) 0.7 mg/dL (0.2-1.0) Aspartate Amino Transf (AST/SGOT) 14 U/L (15-37) 13 U/L (15-37) Alanine Aminotransferase (ALT/SGPT) 12 U/L (14-59) 15 U/L (14-59) Alkaline Phosphatase 63 U/L (46-116) 57 U/L (46-116) Total Protein 6.4 g/dL (6.4-8.2) 5.4 g/dL (6.4-8.2) Albumin 2.3 g/dL (3.4-5.0) 1.9 g/dL (3.4-5.0) Albumin/Globulin Ratio 0.6 (1.0-1.7) 0.5 (1.0-1.7) Laboratory Tests Test 07/09/21 06:50 White Blood Count 11.6 x10^3/uL (4.0-11.0) Red Blood Count 3.96 x10^6/uL (3.50-5.40) Hemoglobin 12.1 g/dL (12.0-15.5) Hematocrit 37.9 % (36.0-47.0) Mean Corpuscular Volume 96 fL (79-100) Mean Corpuscular Hemoglobin 31 pg (25-35) Mean Corpuscular Hemoglobin Concent 32 g/dL (31-37) Red Cell Distribution Width 15.0 % (11.5-14.5) Platelet Count 249 x10^3/uL (140-400) Sodium Level 139 mmol/L (136-145) Potassium Level 3.8 mmol/L (3.5-5.1) Chloride Level 106 mmol/L (98-107) Carbon Dioxide Level 22 mmol/L (21-32) Anion Gap 11 (6-14) Blood Urea Nitrogen 12 mg/dL (7-20) Creatinine 0.6 mg/dL (0.6-1.0) Estimated GFR (Cockcroft-Gault) 95.5 BUN/Creatinine Ratio 20 (6-20) Glucose Level 125 mg/dL (70-99) Calcium Level 7.6 mg/dL (8.5-10.1) Total Bilirubin 0.7 mg/dL (0.2-1.0) Aspartate Amino Transf (AST/SGOT) 13 U/L (15-37) Alanine Aminotransferase (ALT/SGPT) 15 U/L (14-59) Alkaline Phosphatase 57 U/L (46-116) Total Protein 5.4 g/dL (6.4-8.2) Albumin 1.9 g/dL (3.4-5.0) Albumin/Globulin Ratio 0.5 (1.0-1.7) Problem List no stools documented xr with dilated loops, bowel rest, repeat xr in AM Justicifation of Admission Dx: Justifications for Admission: Justification of Admission Dx: Yes Comments: JACK Jordan APRN Jul 09, 2021 11:07
--- NOTE | 2021-07-09 13:47 | NUR ---
SCOTTIE following. Discussed with RN. 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 Surgery and Cardiology following. SCOTTIE requested PCR COVID for return to facility upon discharge. SCOTTIE will continue to follow.
[2021-07-09 15:00] VITALS: BP 133/68
[2021-07-09 19:32] VITALS: BP 125/58
[2021-07-09 22:16] VITALS: BP 131/82
[2021-07-10] MEDS: POTASSIUM CL 20MEQ IN D5W 1,000 ML IV SCH (00:45)
[2021-07-10 03:00] VITALS: BP 145/80
[2021-07-10 04:14] LABS: BASO % 0 % (0-3); EOS # 0.3 x10^3/uL (0.0-0.7); EOS % 3 % (0-3); HEMATOCRIT 40.8 % (36.0-47.0); HEMOGLOBIN 13.3 g/dL (12.0-15.5); LYMPH # 1.9 x10^3/uL (1.0-4.8); LYMPH % 17 % (24-48); MEAN CORPUSCULAR HEMOGLOBIN 31 pg (25-35); MEAN CORPUSCULAR HGB CONC 33 g/dL (31-37); MEAN CORPUSCULAR VOLUME 95 fL (79-100); MONO # 0.6 x10^3/uL (0.0-1.1); MONO % 5 % (0-9); NEUT # 8.4 x10^3/uL (1.8-7.7); NEUT % 75 % (31-73); PLATELET COUNT 266 x10^3/uL (140-400); RED CELL DISTRIBUTION WIDTH 14.6 % (11.5-14.5); WHITE BLOOD COUNT 11.3 x10^3/uL (4.0-11.0)
[2021-07-10 04:34] LABS: ALBUMIN 1.9 g/dL (3.4-5.0); ALBUMIN/GLOBULIN RATIO 0.5 (1.0-1.7); CALCIUM 7.7 mg/dL (8.5-10.1); CREATININE 0.7 mg/dL (0.6-1.0); GFR 79.9; POTASSIUM 3.1 mmol/L (3.5-5.1); TOTAL BILIRUBIN 0.7 mg/dL (0.2-1.0); TOTAL PROTEIN 6.1 g/dL (6.4-8.2)
[2021-07-10] MEDS: PIPERACILLIN/TAZOBACTAM 2.25 GM in IV NORMAL SALINE 50ML 50 ML IV SCH ×3 (05:31→16:59)
--- NOTE | 2021-07-10 06:22 | CARD ---
MR#: [id number] Date of Study: 07/09/2021 Ordering Physician: FELIPE ERVIN, Referring Physician: FELIPE ERVIN, Tech: Tatianna Dalskylarpaula [facility] APPROVED REPORT EXAM: Two-dimensional and M-mode echocardiogram with Doppler and color Doppler. Other Information Quality : AverageHR: 67bpm INDICATION Chest Pain Elevated Troponin RISK FACTORS Hypertension Hyperlipidemia 2D DIMENSIONS Left Atrium(2D)3.8 (1.6-4.0cm)IVSd0.7 (0.7-1.1cm) Aortic Root(2D)2.7 (2.0-3.7cm)LVDd4.7 (3.9-5.9cm) LVOT Diameter2.0 (1.8-2.4cm)PWd1.0 (0.7-1.1cm) LVDs3.2 (2.5-4.0cm)FS (%) 31.9 % SV62.6 mlLVEF(%)59.9 (>50%) Aortic Valve AoV Peak Ken.142.4cm/sAoV VTI26.8cm AO Peak GR.8.1mmHgLVOT VTI 20.25cm AO Mean GR.4mmHgAI P 1/2 [id number] Mitral Valve MV E Lnqqzdfu63.3cm/sMV DECEL [id number] MV A Ncvgjcus83.2cm/sE/A Ratio0.8 TDI Lateral E' P. V7.98cm/sMedial E' P. V5.66cm/s E/Lateral E'7.2E/Medial E'10.1 Tricuspid Valve TR P. Eprpbymm509ao/sTR Peak Gr.38mmHg LEFT VENTRICLE The left ventricle is normal size. There is normal left ventricular wall thickness. The left ventricl e systolic function is normal. The ejection fraction is estimated at 55 to 60%. Transmitral Doppler f low pattern is Grade I-abnormal relaxation pattern. RIGHT VENTRICLE The right ventricle is borderline dilated. There is normal right ventricular wall thickness. The righ t ventricular systolic function is normal. ATRIA The left atrium size is normal. The right atrium size is normal. The interatrial septum is intact wit h no evidence for an atrial septal defect or patent foramen ovale as noted on 2-D or Doppler imaging. AORTIC VALVE The aortic valve is normal in structure and function. Doppler and Color Flow revealed trace aortic re gurgitation. Calculated aortic valve area is 2.5 cm2 with maximum pressure gradient of 8 mmHg and skinny n pressure gradient of 4 mmHg. There is no significant aortic valvular stenosis. MITRAL VALVE The mitral valve is normal in structure and function. There is no evidence of mitral valve prolapse. There is no mitral valve stenosis. Doppler and Color Flow revealed no mitral valve regurgitation note d. TRICUSPID VALVE The tricuspid valve is normal in structure and function. Doppler and Color Flow revealed mild tricusp id regurgitation with an estimated PAP of 48 mmHg. There is no tricuspid valve stenosis. PULMONIC VALVE The pulmonic valve is not well visualized. Doppler and Color Flow revealed no pulmonic valvular regur gitation. GREAT VESSELS The aortic root is normal in size. The IVC is normal in size and collapses >50% with inspiration. PERICARDIAL EFFUSION There is no evidence of significant pericardial effusion. Critical Notification Critical Value: No <Conclusion> The left ventricle systolic function is normal. The ejection fraction is estimated at 55 to 60%. Transmitral Doppler flow pattern is Grade I-abnormal relaxation pattern. Mild tricuspid regurgitation with an estimated PAP of 48 mmHg. There is no evidence of significant pericardial effusion. Signed by : Felipe Ervin, Electronically Approved : 07/10/2021 06:21:37
[2021-07-10 07:04] VITALS: BP 124/79
[2021-07-10] MEDS ORDERED: POTASSIUM CL 40MEQ D5-0.45NACL 1,000 ML IV SCH (09:00)
--- NOTE | 2021-07-10 09:04 | RAD ---
EXAM: XR ABDOMEN COMP ACUTE 07/10/2021 8:10 AM CLINICAL INDICATION: Small bowel obstruction COMPARISON: Abdominal series radiograph 07/08/2021 TECHNIQUE: AP supine and upright view of the abdomen and AP view of the chest FINDINGS: There are multiple dilated loops of small bowel, similar in caliber but mildly increased e xtent of small bowel involved. No dilation of the colon. There is some stool seen in the colon. Mildl y increased distention of the stomach. A calcification in the pelvis is likely a fibroid. 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 The bones are diffusely demineralized. There is lumbar degenerative disc d isease. No pneumoperitoneum. The cardiac silhouette is stable. There are mildly increased airspace opacities in the left lung base . The right lung base is clear. No pleural effusion or pneumothorax. IMPRESSION: 1. Multiple dilated loops of small bowel suspicious for small bowel obstruction or ileus. The degree of dilation is similar but the extent of small bowel involved is slightly increased. There is new mil d gaseous distention of the stomach. 2. Mildly increased opacities in the left lung base. Electronically signed by: Shirlene Cazares MD (07/10/2021 9:02 AM) [id number]
[2021-07-10 10:59] VITALS: BP 120/69
--- NOTE | 2021-07-10 11:13 | PN ---
DATE: 07/10/2021 SUBJECTIVE: The patient is resting, slightly propped up in bed, in no apparent distress. She is demented, does not give any useful information. Nursing staff states that she had 2 episodes of vomiting yesterday, but none overnight or this morning. She has also very small amount of stool. I did actually a rectal exam and the rectal vault was empty. She had another acute abdomen series done this morning; the report of which is still pending at the time of this dictation. PHYSICAL EXAMINATION: GENERAL: When I examined her, she was pale, but not jaundiced or cyanosed. No lymphadenopathy, no thyromegaly, no jugular venous distention. No lower limb edema. VITAL SIGNS: Her heart rate was 69, blood pressure was 124/79, temperature was 98.2, respiratory rate was 18 and oxygen saturation was 95% on room air. HEAD, EYES, EARS, NOSE AND THROAT: Normocephalic, atraumatic. NECK: Supple. HEART: Normal first and second heart sounds. No gallop or murmur. CHEST: Clear to auscultation. No crepitation or rhonchi. ABDOMEN: Distended. Tenderness mostly in the left lower quadrant. No guarding or rigidity. No organomegaly. All hernial orifice intact. Bowel sounds are sluggish. RECTAL: I did a rectal exam, which showed the rectal vault is empty. NEUROLOGIC: She is demented without any obvious lateralizing sign. She is mostly bedbound. Her intake and output are incompletely recorded. LABORATORY DATA: This morning showed a white cell count 11,300, hemoglobin 13.3, hematocrit 40, MCV 95 and platelet count 266,000. Her chemistry showed serum sodium 133, potassium 3.1, chloride 101, bicarbonate 24, anion gap of 8, BUN 8 and creatinine 0.7. Estimated GFR was 80 mL per minute. Her glucose 116, calcium was 7.7. Total bilirubin, AST, ALT, alkaline phosphatase were normal. Total protein 6.1, albumin was 1.9. ASSESSMENT: 1. Recurrent bouts of nausea, vomiting and constipation for which she was evaluated in the Emergency Room of [facility] and CT scan showed dilated small bowel with transition zone in the pelvic area suggestive of small bowel obstruction. Acute abdomen series done in this hospital confirmed that she continued to have dilated small bowel. 2. Aspiration pneumonia for which she was treated with IV Zosyn. 3. Slightly elevated troponin that has trended down and for which she was seen by the blank driller who felt that the non-ST segment elevation myocardial infarction likely due to type 2 demand ischemia. A 2-dimensional echocardiogram was done and it showed that the patient has normal left ventricular systolic function and ejection fraction estimated to be at 55-60%. Transmitral Doppler flow pattern is grade 1, abnormal relaxation pattern and she does have mild tricuspid regurgitation with an estimated pulmonary artery pressure of 48 mmHg. No evidence of significant pericardial effusion. 4. The patient has multiple preexisting conditions include: A. Hypertension, seems to be well controlled. B. Hyperlipidemia. C. Vitamin D deficiency. D. Hypothyroidism. E. Chronic venous hypertension. F. Hypernatremia and hypokalemia. Her sodium and potassium are actually both low. We did change her IV fluid to D5 half normal with 40 mEq of potassium chloride. 5. Dementia. PLAN: Plan is obvious to continue with IV fluid. Continue IV antibiotic. Continue with pain management. Initiate DVT prophylaxis. She had had another acute abdomen series that has not yet been read and obviously from medical point of view, she seems to be stable. Awaiting the final decision by the surgical team, although obviously given her advanced age and dementia, she is at high risk. HOLLY/ABIMBOLA/MOSHE DR: Oracio TID: [id number]
--- NOTE | 2021-07-10 12:34 | NUR ---
SW following. Discussed with RN, updates faxed to Agency. No bowel movement as of this morning, pt still has bowel obstruction per RN. SW will continue to follow.
--- NOTE | 2021-07-10 12:39 | PDOC ---
SURGICAL PROGRESS NOTE DATE: 07/10/21 TIME: 12:36 Subjective Patient sleeping easily arousable dementia precludes much of a history Vital Signs Vital Signs Date Time Temp Pulse Resp B/P (MAP) Pulse Ox O2 Delivery O2 Flow Rate FiO2 07/10/21 10:59 97.9 70 16 120/69 (86) 95 Room Air 97.9 I&O Intake and Output 07/10/21 07:00 Output Total 750 ml Balance -750 ml Output Urine Total 650 ml Emesis 100 ml # Voids 1 PATIENT HAS A AMANDA: Yes General: Cooperative Abdomen: Soft, Other (Nondistended mildly tender to palpation hypoactive bowel sounds) Labs Laboratory Tests Test 07/09/21 06:50 07/10/21 03:30 White Blood Count 11.6 x10^3/uL (4.0-11.0) 11.3 x10^3/uL (4.0-11.0) Red Blood Count 3.96 x10^6/uL (3.50-5.40) 4.30 x10^6/uL (3.50-5.40) Hemoglobin 12.1 g/dL (12.0-15.5) 13.3 g/dL (12.0-15.5) Hematocrit 37.9 % (36.0-47.0) 40.8 % (36.0-47.0) Mean Corpuscular Volume 96 fL (79-100) 95 fL (79-100) Mean Corpuscular Hemoglobin 31 pg (25-35) 31 pg (25-35) Mean Corpuscular Hemoglobin Concent 32 g/dL (31-37) 33 g/dL (31-37) Red Cell Distribution Width 15.0 % (11.5-14.5) 14.6 % (11.5-14.5) Platelet Count 249 x10^3/uL (140-400) 266 x10^3/uL (140-400) Sodium Level 139 mmol/L (136-145) 133 mmol/L (136-145) Potassium Level 3.8 mmol/L (3.5-5.1) 3.1 mmol/L (3.5-5.1) Chloride Level 106 mmol/L (98-107) 101 mmol/L (98-107) Carbon Dioxide Level 22 mmol/L (21-32) 24 mmol/L (21-32) Anion Gap 11 (6-14) 8 (6-14) Blood Urea Nitrogen 12 mg/dL (7-20) 8 mg/dL (7-20) Creatinine 0.6 mg/dL (0.6-1.0) 0.7 mg/dL (0.6-1.0) Estimated GFR (Cockcroft-Gault) 95.5 79.9 BUN/Creatinine Ratio 20 (6-20) 11 (6-20) Glucose Level 125 mg/dL (70-99) 116 mg/dL (70-99) Calcium Level 7.6 mg/dL (8.5-10.1) 7.7 mg/dL (8.5-10.1) Total Bilirubin 0.7 mg/dL (0.2-1.0) 0.7 mg/dL (0.2-1.0) Aspartate Amino Transf (AST/SGOT) 13 U/L (15-37) 15 U/L (15-37) Alanine Aminotransferase (ALT/SGPT) 15 U/L (14-59) 10 U/L (14-59) Alkaline Phosphatase 57 U/L (46-116) 61 U/L (46-116) Total Protein 5.4 g/dL (6.4-8.2) 6.1 g/dL (6.4-8.2) Albumin 1.9 g/dL (3.4-5.0) 1.9 g/dL (3.4-5.0) Albumin/Globulin Ratio 0.5 (1.0-1.7) 0.5 (1.0-1.7) Neutrophils (%) (Auto) 75 % (31-73) Lymphocytes (%) (Auto) 17 % (24-48) Monocytes (%) (Auto) 5 % (0-9) Eosinophils (%) (Auto) 3 % (0-3) Basophils (%) (Auto) 0 % (0-3) Neutrophils # (Auto) 8.4 x10^3/uL (1.8-7.7) Lymphocytes # (Auto) 1.9 x10^3/uL (1.0-4.8) Monocytes # (Auto) 0.6 x10^3/uL (0.0-1.1) Eosinophils # (Auto) 0.3 x10^3/uL (0.0-0.7) Basophils # (Auto) 0.0 x10^3/uL (0.0-0.2) Laboratory Tests Test 07/10/21 03:30 White Blood Count 11.3 x10^3/uL (4.0-11.0) Red Blood Count 4.30 x10^6/uL (3.50-5.40) Hemoglobin 13.3 g/dL (12.0-15.5) Hematocrit 40.8 % (36.0-47.0) Mean Corpuscular Volume 95 fL (79-100) Mean Corpuscular Hemoglobin 31 pg (25-35) Mean Corpuscular Hemoglobin Concent 33 g/dL (31-37) Red Cell Distribution Width 14.6 % (11.5-14.5) Platelet Count 266 x10^3/uL (140-400) Neutrophils (%) (Auto) 75 % (31-73) Lymphocytes (%) (Auto) 17 % (24-48) Monocytes (%) (Auto) 5 % (0-9) Eosinophils (%) (Auto) 3 % (0-3) Basophils (%) (Auto) 0 % (0-3) Neutrophils # (Auto) 8.4 x10^3/uL (1.8-7.7) Lymphocytes # (Auto) 1.9 x10^3/uL (1.0-4.8) Monocytes # (Auto) 0.6 x10^3/uL (0.0-1.1) Eosinophils # (Auto) 0.3 x10^3/uL (0.0-0.7) Basophils # (Auto) 0.0 x10^3/uL (0.0-0.2) Sodium Level 133 mmol/L (136-145) Potassium Level 3.1 mmol/L (3.5-5.1) Chloride Level 101 mmol/L (98-107) Carbon Dioxide Level 24 mmol/L (21-32) Anion Gap 8 (6-14) Blood Urea Nitrogen 8 mg/dL (7-20) Creatinine 0.7 mg/dL (0.6-1.0) Estimated GFR (Cockcroft-Gault) 79.9 BUN/Creatinine Ratio 11 (6-20) Glucose Level 116 mg/dL (70-99) Calcium Level 7.7 mg/dL (8.5-10.1) Total Bilirubin 0.7 mg/dL (0.2-1.0) Aspartate Amino Transf (AST/SGOT) 15 U/L (15-37) Alanine Aminotransferase (ALT/SGPT) 10 U/L (14-59) Alkaline Phosphatase 61 U/L (46-116) Total Protein 6.1 g/dL (6.4-8.2) Albumin 1.9 g/dL (3.4-5.0) Albumin/Globulin Ratio 0.5 (1.0-1.7) I have reviewed the following Abdominal films show slightly increased dilation Assessment/Plan Small bowel obstruction versus ileus will plan placing NG tube and obtaining small bowel follow-through Justicifation of Admission Dx: Justifications for Admission: Justification of Admission Dx: Yes LAURENCE CALDERON MD Jul 10, 2021 12:38
[2021-07-10 14:46] VITALS: BP 128/75
--- NOTE | 2021-07-10 15:33 | PDOC ---
KARI GARCIA BUSINESS TRANSFORMATION CONSULTANT 07/10/21 1533: CARDIO Progress Notes Date and Time Date of Service 07/10/21 Time of Evaluation 1140 Subjective Subjective: No Chest Pain, No shortness of breath, No Palpitations Vitals Vitals Vital Signs Date Time Temp Pulse Resp B/P (MAP) Pulse Ox O2 Delivery O2 Flow Rate FiO2 07/10/21 14:46 97.5 65 18 128/75 (92) 94 Room Air 97.5 Weight Weight [ ] Input and Output Intake and Output Intake and Output 07/10/21 07:00 Output Total 750 ml Balance -750 ml Output Urine Total 650 ml Emesis 100 ml # Voids 1 Laboratory Labs Laboratory Tests Test 07/10/21 03:30 White Blood Count 11.3 x10^3/uL (4.0-11.0) Red Blood Count 4.30 x10^6/uL (3.50-5.40) Hemoglobin 13.3 g/dL (12.0-15.5) Hematocrit 40.8 % (36.0-47.0) Mean Corpuscular Volume 95 fL (79-100) Mean Corpuscular Hemoglobin 31 pg (25-35) Mean Corpuscular Hemoglobin Concent 33 g/dL (31-37) Red Cell Distribution Width 14.6 % (11.5-14.5) Platelet Count 266 x10^3/uL (140-400) Neutrophils (%) (Auto) 75 % (31-73) Lymphocytes (%) (Auto) 17 % (24-48) Monocytes (%) (Auto) 5 % (0-9) Eosinophils (%) (Auto) 3 % (0-3) Basophils (%) (Auto) 0 % (0-3) Neutrophils # (Auto) 8.4 x10^3/uL (1.8-7.7) Lymphocytes # (Auto) 1.9 x10^3/uL (1.0-4.8) Monocytes # (Auto) 0.6 x10^3/uL (0.0-1.1) Eosinophils # (Auto) 0.3 x10^3/uL (0.0-0.7) Basophils # (Auto) 0.0 x10^3/uL (0.0-0.2) Sodium Level 133 mmol/L (136-145) Potassium Level 3.1 mmol/L (3.5-5.1) Chloride Level 101 mmol/L (98-107) Carbon Dioxide Level 24 mmol/L (21-32) Anion Gap 8 (6-14) Blood Urea Nitrogen 8 mg/dL (7-20) Creatinine 0.7 mg/dL (0.6-1.0) Estimated GFR (Cockcroft-Gault) 79.9 BUN/Creatinine Ratio 11 (6-20) Glucose Level 116 mg/dL (70-99) Calcium Level 7.7 mg/dL (8.5-10.1) Total Bilirubin 0.7 mg/dL (0.2-1.0) Aspartate Amino Transf (AST/SGOT) 15 U/L (15-37) Alanine Aminotransferase (ALT/SGPT) 10 U/L (14-59) Alkaline Phosphatase 61 U/L (46-116) Total Protein 6.1 g/dL (6.4-8.2) Albumin 1.9 g/dL (3.4-5.0) Albumin/Globulin Ratio 0.5 (1.0-1.7) Physical Exam HEENT: Neck Supple W Full Motion Chest: Symmetric LUNGS: Other (diminished bases) Heart: RRR (heart tones regular. not on tele) Abdomen: Soft N/T Extremities: No Edema Neurology: alert, confused Assessment Assessment 1. Non-STEMI: Slight troponin elevation. Most likely type II/demand ischemia. Doubt ACS. Echo with preserved LV systolic function 2. Nausea/vomiting/constipation with possible small bowel obstruction: continue as per GS team 3. Hypertension: controlled 4. Aspiration pneumonia: Continue intravenous antibiotics 5. Hyperlipidemia: Continue statin therapy 6. Hypothyroidism: Continue levothyroxine 7. Encephalopathy with underlying dementia 8. Hypokalemia; replaced Justicifation of Admission Dx: Justifications for Admission: Justification of Admission Dx: Yes FELIPE RUBIO MD 07/10/21 1612: CARDIO Progress Notes Assessment Assessment Patient seen and examined. Agree with CAR MECHANIC HELPER's assessment and plan. Non-STEMI most probably type II/demand ischemia 2D echo showed LVEF 55 to 60% with diastolic dysfunction Continue intravenous antibiotics for aspiration pneumonia GS team following for possible small bowel obstruction KARI GARCIA APRN Jul 10, 2021 15:33 FELIPE RUBIO MD Jul 10, 2021 16:12
[2021-07-10 19:40] VITALS: BP 112/74
[2021-07-10 23:22] VITALS: BP 109/52
[2021-07-11 03:19] VITALS: BP 115/61
[2021-07-11] MEDS: PIPERACILLIN/TAZOBACTAM 2.25 GM in IV NORMAL SALINE 50ML 50 ML IV SCH ×3 (06:00→12:00)
--- NOTE | 2021-07-11 06:12 | NUR ---
This RN and TRISTAN Chu attempted to place NG tube. Patient vomited large amount green emesis during procedure. KUB ordered to check placement as she is expected to ingest dye through it. Patient coughing during and after procedure with ineffective loose cough. Oral suction done. Unable to place IV after 3 attempts. Mitts placed to protect NG. Patient loudly making noises and ramblings.
[2021-07-11 06:59] LABS: HEMOGLOBIN 12.8 g/dL (12.0-15.5); RED BLOOD COUNT 4.15 x10^6/uL (3.50-5.40); RED CELL DISTRIBUTION WIDTH 14.7 % (11.5-14.5)
[2021-07-11 07:00] VITALS: BP 120/66
[2021-07-11 07:19] LABS: CALCIUM 8.2 mg/dL (8.5-10.1); CREATININE 0.8 mg/dL (0.6-1.0); GFR 68.5; POTASSIUM 3.9 mmol/L (3.5-5.1)
[2021-07-11] MEDS ORDERED: IOHEXOL 300 MG/ML 100ML VIAL. PO ONE (07:45)
[2021-07-11] MEDS ORDERED: CONTRAST GIVEN. MC PRN (07:45)
--- NOTE | 2021-07-11 08:24 | RAD ---
EXAM: Abdomen, single view. HISTORY: Nasogastric tube placement. COMPARISON: 07/10/2021 FINDINGS: A frontal view of the abdomen is obtained. There is no nasogastric tube within the field-of -view. There is gaseous distention of the stomach and there are distended air-filled loops of small b owel throughout the abdomen. There is colonic stool. There is a left hip arthroplasty. IMPRESSION: 1. No nasogastric tube within the [id number]. This may be excluded from the owbkh-ie-tzub within t he esophagus. 2. Distended air-filled stomach and distended loops of small bowel throughout the abdomen, similar co mpared to the prior exam and consistent with obstruction or ileus. Electronically signed by: Ml Aiken MD (07/11/2021 8:22 AM) [id number]
--- NOTE | 2021-07-11 10:17 | NUR ---
SCOTTIE following. Discussed with RN, pt needing NG placed with xray. Small bowel series to be done after NG placement. SCOTTIE will continue to follow. Addendum: 07/11/21 at 1354 by CHRISTI RUBIN Decision made to explore hospice. Referral faxed to [facility] for inpatient hospice vs back to [facility] with hospice. Addendum: 07/11/21 at 1605 by CHRISTI RUBIN Pt accepted for inpatient hospice, however pt needing a line placed prior to admission to inpatient. Midline placement unsuccessful. RN awaiting determination of when a PICC line can be tried. Family have signed consents with [facility]. SCOTTIE will continue to follow.
[2021-07-11] MEDS ORDERED: MORPHINE SULFATE 20 MG/ML CONC SOLUTION. SL PRN (12:15)
--- NOTE | 2021-07-11 13:39 | RAD ---
NG tube insertion with fluoroscopic guidance 07/11/2021 INDICATION: Inability to place tube on the floor Discussion: Patient was placed in the lateral decubitus position on the fluoroscopy table. Under fluo roscopic guidance a nasogastric tube was advanced through the nose, ultimately into the stomach. This is confirmed with the administration of a small amount of iodinated contrast. Catheter was secured i n place. No immediate complications were identified. Fluoroscopy time: 2.1 minutes Pression: Fluoroscopically guided placement of a nasogastric tube Electronically signed by: Marty Christensen MD (07/11/2021 1:37 PM) [id number]
--- NOTE | 2021-07-11 14:25 | PDOC ---
SURGICAL PROGRESS NOTE DATE: 07/11/21 TIME: 14:23 Subjective Patient essentially unresponsive secondary to dementia she had an NG tube placed with bilious output Vital Signs Vital Signs Date Time Temp Pulse Resp B/P (MAP) Pulse Ox O2 Delivery O2 Flow Rate FiO2 07/11/21 13:14 Room Air 07/11/21 07:00 97.6 84 20 120/66 (84) 94 97.6 I&O Intake and Output 07/11/21 07:00 Output Total 650 ml Balance -650 ml Output Urine Total 650 ml PATIENT HAS A AMANDA: Yes Abdomen: Soft, Other (Mildly distended mildly tender to palpation diffusely no peritoneal sign) Labs Laboratory Tests Test 07/09/21 15:00 07/10/21 03:30 07/11/21 06:30 Coronavirus (COVID-19)(PCR) Not detected (NOT DETECTD) White Blood Count 11.3 x10^3/uL (4.0-11.0) 13.0 x10^3/uL (4.0-11.0) Red Blood Count 4.30 x10^6/uL (3.50-5.40) 4.15 x10^6/uL (3.50-5.40) Hemoglobin 13.3 g/dL (12.0-15.5) 12.8 g/dL (12.0-15.5) Hematocrit 40.8 % (36.0-47.0) 39.0 % (36.0-47.0) Mean Corpuscular Volume 95 fL (79-100) 94 fL (79-100) Mean Corpuscular Hemoglobin 31 pg (25-35) 31 pg (25-35) Mean Corpuscular Hemoglobin Concent 33 g/dL (31-37) 33 g/dL (31-37) Red Cell Distribution Width 14.6 % (11.5-14.5) 14.7 % (11.5-14.5) Platelet Count 266 x10^3/uL (140-400) 251 x10^3/uL (140-400) Neutrophils (%) (Auto) 75 % (31-73) Lymphocytes (%) (Auto) 17 % (24-48) Monocytes (%) (Auto) 5 % (0-9) Eosinophils (%) (Auto) 3 % (0-3) Basophils (%) (Auto) 0 % (0-3) Neutrophils # (Auto) 8.4 x10^3/uL (1.8-7.7) Lymphocytes # (Auto) 1.9 x10^3/uL (1.0-4.8) Monocytes # (Auto) 0.6 x10^3/uL (0.0-1.1) Eosinophils # (Auto) 0.3 x10^3/uL (0.0-0.7) Basophils # (Auto) 0.0 x10^3/uL (0.0-0.2) Sodium Level 133 mmol/L (136-145) 136 mmol/L (136-145) Potassium Level 3.1 mmol/L (3.5-5.1) 3.9 mmol/L (3.5-5.1) Chloride Level 101 mmol/L (98-107) 102 mmol/L (98-107) Carbon Dioxide Level 24 mmol/L (21-32) 21 mmol/L (21-32) Anion Gap 8 (6-14) 13 (6-14) Blood Urea Nitrogen 8 mg/dL (7-20) 9 mg/dL (7-20) Creatinine 0.7 mg/dL (0.6-1.0) 0.8 mg/dL (0.6-1.0) Estimated GFR (Cockcroft-Gault) 79.9 68.5 BUN/Creatinine Ratio 11 (6-20) Glucose Level 116 mg/dL (70-99) 106 mg/dL (70-99) Calcium Level 7.7 mg/dL (8.5-10.1) 8.2 mg/dL (8.5-10.1) Magnesium Level 1.9 mg/dL (1.8-2.4) Total Bilirubin 0.7 mg/dL (0.2-1.0) Aspartate Amino Transf (AST/SGOT) 15 U/L (15-37) Alanine Aminotransferase (ALT/SGPT) 10 U/L (14-59) Alkaline Phosphatase 61 U/L (46-116) Total Protein 6.1 g/dL (6.4-8.2) Albumin 1.9 g/dL (3.4-5.0) Albumin/Globulin Ratio 0.5 (1.0-1.7) Laboratory Tests Test 07/11/21 06:30 White Blood Count 13.0 x10^3/uL (4.0-11.0) Red Blood Count 4.15 x10^6/uL (3.50-5.40) Hemoglobin 12.8 g/dL (12.0-15.5) Hematocrit 39.0 % (36.0-47.0) Mean Corpuscular Volume 94 fL (79-100) Mean Corpuscular Hemoglobin 31 pg (25-35) Mean Corpuscular Hemoglobin Concent 33 g/dL (31-37) Red Cell Distribution Width 14.7 % (11.5-14.5) Platelet Count 251 x10^3/uL (140-400) Sodium Level 136 mmol/L (136-145) Potassium Level 3.9 mmol/L (3.5-5.1) Chloride Level 102 mmol/L (98-107) Carbon Dioxide Level 21 mmol/L (21-32) Anion Gap 13 (6-14) Blood Urea Nitrogen 9 mg/dL (7-20) Creatinine 0.8 mg/dL (0.6-1.0) Estimated GFR (Cockcroft-Gault) 68.5 Glucose Level 106 mg/dL (70-99) Calcium Level 8.2 mg/dL (8.5-10.1) Assessment/Plan I had a long discussion with patient's son who is DPOA in regards to long-term outlook for Ms. Brown. It appears she has a obstruction that would require surgery to fix. The son states the family does not wish to proceed with any invasive procedures such as surgery and has elected to pursue hospice. They are well aware that this will likely lead to her passing Justicifation of Admission Dx: Justifications for Admission: Justification of Admission Dx: Yes LAURENCE CALDERON MD Jul 11, 2021 14:25
--- NOTE | 2021-07-11 15:56 | NUR ---
nkda Allergies and reactions INR na BUN 8 Cr 0.9 Platelets 256 Blood culture not done blood culture results Order Verified y Consent signed y Previous PICC placement n Past Medical/Surgical history and current diagnosis reviewed Patient Medical /Surgical History Related to PICC line placement None Diabetes Special considerations for PICC line placement None PICC placement indication fluids, pain management Poor peripheral intravenous access Total Parenteral Nutrition (TPN) Raina Denney RN name of PICC Nurse Addendum: 07/11/21 at 1602 by RAINA DENNEY RN Amended: Links added.
--- NOTE | 2021-07-11 15:59 | NUR ---
Procedure: Following complete explanation of the PICC procedure including the indications, risks, and potential complications, informed consent was obtained. The possibility for infection was discussed along with signs, symptoms, and prevention. All the all questions were answered. Written and verbal patient education was provided. y Hand hygiene performed. y Standardized central line checklist was utilized. y The patient was placed in the supine position, the arm was prepped with chlorhexidine and patient draped with maximum sterile barrier. 4 mL 1% lidocaine was infiltrated into the skin to provide local anesthesia. A thorough assessment of right upper extremity completed. Using real-time ultrasound guidance and standardized micro puncture set, the basilic vein was attempted unsuccessfully for Midline placement . Complications: unsuccessful attempt, no complications Addendum: 07/11/21 at 1602 by VIOLETA DENNEY RN Amended: Links added.
== END 2021-07-11 16:40 | disposition hospice, inpatient (51) | DRG 177 ==
LOC: 4 NORTH 00:54
PROVIDERS: ADMIT Internal Medicine; ATTEND Internal Medicine
PROC: 0D9670Z Drainage of Stomach with Drainage Device, Via Natural or Artificial Opening (ICD-10-PCS; 2021-07-07)
PROC: B54MZZA Ultrasonography of Right Upper Extremity Veins, Guidance (ICD-10-PCS; principal; 2021-07-11)
DX: J69.0 Pneumonitis due to inhalation of food and vomit (principal); E43 Unspecified severe protein-calorie malnutrition; I21.A1 Myocardial infarction type 2; K56.609 Unspecified intestinal obstruction, unspecified as to partial versus complete obstruction; E87.0 Hyperosmolality and hypernatremia; G93.40 Encephalopathy, unspecified; D25.9 Leiomyoma of uterus, unspecified; E03.9 Hypothyroidism, unspecified; E55.9 Vitamin D deficiency, unspecified; E78.5 Hyperlipidemia, unspecified; E87.6 Hypokalemia; F03.90 Unspecified dementia, unspecified severity, without behavioral disturbance, psychotic disturbance, mood disturbance, and anxiety; F31.9 Bipolar disorder, unspecified; I10 Essential (primary) hypertension; I48.91 Unspecified atrial fibrillation; I87.309 Chronic venous hypertension (idiopathic) without complications of unspecified lower extremity; M81.0 Age-related osteoporosis without current pathological fracture; N28.9 Disorder of kidney and ureter, unspecified; N85.8 Other specified noninflammatory disorders of uterus; Z66 Do not resuscitate; Z86.73 Personal history of transient ischemic attack (TIA), and cerebral infarction without residual deficits; Z99.3 Dependence on wheelchair; M19.90 Unspecified osteoarthritis, unspecified site
CPT/HCPCS: 36415; 43752; 74018; 74022; 80048; 80053; 83605; 83615; 83735; 84484; 85025; 85027; 93306; J2543; J3480; Q9967; U0003; C8929; G0378